=== PATIENT | female | born 1985 | race African-American/Black ===

== ENCOUNTER 2017-05-23 22:38 | Emergency (ER) | payer MEDICAID ==
[~2017-05-23] VITALS: Ht 160 cm; Wt 72.0 kg
[2017-05-24 01:04] VITALS: BP 109/73
== END 2017-05-24 04:40 | disposition left against medical advice (07) ==
LOC: ER 22:38
DX: R42 Dizziness and giddiness (principal); Z53.21 Procedure and treatment not carried out due to patient leaving prior to being seen by health care provider

== ENCOUNTER 2017-11-22 17:18 | Emergency (ER) | payer MEDICAID ==
[~2017-11-22] VITALS: Ht 165.1 cm; Wt 60.0 kg
[2017-11-22 17:20] VITALS: BP 114/69
[2017-11-22] MEDS ORDERED: IBUPROFEN 600MG TABLET PO ONE (19:00)
== END 2017-11-22 19:43 | disposition home or self-care (01) ==
LOC: ER 17:18
DX: M25.572 Pain in left ankle and joints of left foot (principal); W17.2XXA Fall into hole, initial encounter; Y93.89 Activity, other specified; Y92.89 Other specified places as the place of occurrence of the external cause; Y99.8 Other external cause status
CPT/HCPCS: 73610; 73630; 81025; 99284

== ENCOUNTER 2018-09-25 06:30 | Inpatient (IN) | payer MEDICAID ==
[~2018-09-25] VITALS: Ht 167.6 cm; Wt 72.6 kg
[2018-09-25] MEDS ORDERED: OXYCODONE HCL/ACETAMINOPHEN 5/325MG TABLET PO ONE (10:00)
[2018-09-25] MEDS ORDERED: KETOROLAC 60MG/2ML VIAL IM ONE (10:00)
[2018-09-25] MEDS ORDERED: MORPHINE SULFATE 4 MG/ML CPJ (NOT FOR IM USE) IV STA (10:36)
[2018-09-25 11:17] LABS: BASOPHILS % 0.5 % (0.0-2.0); EOSINOPHILS % 1.6 % (0.0-5.0); HEMATOCRIT. 39.8 % (36.0-48.0); HEMOGLOBIN. 13.1 g/dL (12.0-16.0); LYMPHOCYTES % 33.6 % (20.0-50.0); MEAN CORPUSCULAR HEMOGLOBIN 27.2 pg (28.0-32.0); MEAN CORPUSCULAR VOLUME 82.4 fL (81.0-99.0); MEAN PLATELET VOLUME 8.8 fl (7.4-10.4); MONOCYTES % 6.6 % (2.0-8.0); NEUTROPHILS % 57.7 % (40.0-76.0); PLATELET 193 x1000/uL (130-400); RED BLOOD CELL COUNT 4.83 mill/uL (4.2-5.4); RED CELL DISTRIBUTION WIDTH 16.7 % (11.6-14.6)
[2018-09-25 11:24] LABS: CHLORIDE 104 mEq/L (98-107)
[2018-09-25] MEDS ORDERED: IPRATROPIUM/ALBUTEROL 0.5-3(2.5)MG/3ML NEB INH PRN (12:45)
[2018-09-25] MEDS ORDERED: HYDROMORPHONE HCL/PF 2MG/ML CPJ IV PRN (12:45)
[2018-09-25] MEDS ORDERED: ONDANSETRON HCL 4MG/2ML INJ IV PRN (12:45)
[2018-09-25] MEDS ORDERED: HYDROCODONE/ACETAMINOPHEN 5/325MG TABLET PO PRN (12:45)
[2018-09-25 14:43] LABS: PHOSPHORUS 3.6 mg/dL (2.5-4.9)
[2018-09-25 20:00] VITALS: BP 102/69
[2018-09-25 21:20] VITALS: BP 102/69
[2018-09-25 21:30] VITALS: BP 102/69
[2018-09-25 22:05] VITALS: BP 106/56
[2018-09-25] MEDS: ENOXAPARIN 40MG/0.4ML SYR SUBCUT SCH (22:25)
[2018-09-25 22:50] LABS: CREATINE KINASE 59 IU/L (26-192)
[2018-09-25 23:45] VITALS: BP 88/60
[2018-09-26] VITALS (7 sets, daily range): BP systolic 87–115; BP diastolic 54–62
[2018-09-26] MEDS ORDERED: [UNRECOGNIZED DRUG - CODE] PO (03:09)
[2018-09-26] MEDS ORDERED: GABA-529 MT (03:09)
[2018-09-26 07:15] LABS: BASOPHILS % 0.2 % (0.0-2.0); HEMOGLOBIN. 11.1 g/dL (12.0-16.0); LYMPHOCYTES % 40.6 % (20.0-50.0); MEAN CORPUSCULAR HEMOGLOBIN 26.9 pg (28.0-32.0); MEAN CORPUSCULAR VOLUME 81.9 fL (81.0-99.0); MEAN PLATELET VOLUME 9.2 fl (7.4-10.4); MONOCYTES % 9.8 % (2.0-8.0); NEUTROPHILS % 46.4 % (40.0-76.0); PLATELET 163 x1000/uL (130-400); RED BLOOD CELL COUNT 4.15 mill/uL (4.2-5.4); RED CELL DISTRIBUTION WIDTH 16.5 % (11.6-14.6)
[2018-09-26 07:25] LABS: CHLORIDE 104 mEq/L (98-107)
[2018-09-26 07:39] LABS: LDL CHOLESTEROL 145 mg/dL (5-100)
[2018-09-26 07:41] LABS: HDL CHOLESTEROL 47 mg/dL (40-59)
[2018-09-26] MEDS ORDERED: MORPHINE SULFATE 4 MG/ML CPJ (NOT FOR IM USE) IV PRN (11:45)
[2018-09-26] MEDS: ACETAMINOPHEN 325MG TABLET PO PRN (17:27)
[2018-09-26] MEDS: ENOXAPARIN 40MG/0.4ML SYR SUBCUT SCH (21:16)
[2018-09-27] VITALS: BP 101/58
[2018-09-27 04:00] VITALS: BP 99/64
[2018-09-27 06:46] LABS: CHLORIDE 107 mEq/L (98-107)
[2018-09-27 06:56] LABS: BASOPHILS % 0.4 % (0.0-2.0); EOSINOPHILS % 2.8 % (0.0-5.0); HEMATOCRIT. 34.5 % (36.0-48.0); HEMOGLOBIN. 11.4 g/dL (12.0-16.0); LYMPHOCYTES % 35.9 % (20.0-50.0); MEAN CORPUSCULAR VOLUME 81.3 fL (81.0-99.0); MEAN PLATELET VOLUME 9.4 fl (7.4-10.4); MONOCYTES % 9.9 % (2.0-8.0); PLATELET 177 x1000/uL (130-400); RED BLOOD CELL COUNT 4.24 mill/uL (4.2-5.4); RED CELL DISTRIBUTION WIDTH 15.6 % (11.6-14.6)
[2018-09-27 08:00] VITALS: BP 120/68
[2018-09-27 12:14] VITALS: BP 114/80
[2018-09-27] MEDS ORDERED: HYDR-4009 MT (12:28)
[2018-09-27] MEDS ORDERED: ATOR10TA MT (12:28)
[2018-09-27 16:00] VITALS: BP 109/75
[2018-09-27 20:00] VITALS: BP 112/71
[2018-09-27] MEDS: ENOXAPARIN 40MG/0.4ML SYR SUBCUT SCH (20:47)
[2018-09-28] VITALS: BP 119/75
[2018-09-28 04:00] VITALS: BP 121/71
[2018-09-28 07:00] LABS: CHLORIDE 106 mEq/L (98-107)
[2018-09-28 07:16] LABS: BASOPHILS % 0.3 % (0.0-2.0); EOSINOPHILS % 2.8 % (0.0-5.0); HEMATOCRIT. 38.7 % (36.0-48.0); HEMOGLOBIN. 12.6 g/dL (12.0-16.0); LYMPHOCYTES % 25.4 % (20.0-50.0); MEAN CORPUSCULAR HEMOGLOBIN 26.7 pg (28.0-32.0); MEAN CORPUSCULAR VOLUME 82.2 fL (81.0-99.0); MEAN PLATELET VOLUME 9.5 fl (7.4-10.4); MONOCYTES % 9.2 % (2.0-8.0); NEUTROPHILS % 62.3 % (40.0-76.0); PLATELET 173 x1000/uL (130-400); RED BLOOD CELL COUNT 4.71 mill/uL (4.2-5.4); RED CELL DISTRIBUTION WIDTH 16.4 % (11.6-14.6)
[2018-09-28 08:00] VITALS: BP 117/74
[2018-09-28 12:00] VITALS: BP 116/81
[2018-09-28] MEDS: CYCLOBENZAPRINE 10MG TABLET PO SCH ×2 (14:52→22:00)
[2018-09-28] MEDS: GABAPENTIN 100MG CAPSULE PO SCH ×2 (15:00→22:11)
[2018-09-28] MEDS ORDERED: TRAMADOL 50MG TABLET PO PRN (15:00)
[2018-09-28 16:00] VITALS: BP 103/75
[2018-09-28 20:00] VITALS: BP 96/66
[2018-09-28] MEDS: NORTRIPTYLINE HCL 10MG CAPSULE PO SCH (22:12)
[2018-09-28] MEDS: ENOXAPARIN 40MG/0.4ML SYR SUBCUT SCH ×2 (22:13→22:14)
[2018-09-29] VITALS: BP 100/63
[2018-09-29 04:00] VITALS: BP 98/72
[2018-09-29] MEDS: ACETAMINOPHEN 325MG TABLET PO PRN (05:58)
[2018-09-29] MEDS: GABAPENTIN 100MG CAPSULE PO SCH ×3 (05:58→20:55)
[2018-09-29] MEDS: CYCLOBENZAPRINE 10MG TABLET PO SCH ×3 (05:58→20:55)
[2018-09-29 08:00] VITALS: BP 107/72
[2018-09-29 11:51] VITALS: BP 116/81
[2018-09-29 12:11] LABS: BASOPHILS % 0.3 % (0.0-2.0); EOSINOPHILS % 3.8 % (0.0-5.0); HEMATOCRIT. 36.1 % (36.0-48.0); HEMOGLOBIN. 11.8 g/dL (12.0-16.0); LYMPHOCYTES % 23.2 % (20.0-50.0); MEAN CORPUSCULAR VOLUME 82.4 fL (81.0-99.0); MEAN PLATELET VOLUME 9.8 fl (7.4-10.4); NEUTROPHILS % 61.7 % (40.0-76.0); PLATELET 168 x1000/uL (130-400); RED BLOOD CELL COUNT 4.39 mill/uL (4.2-5.4); RED CELL DISTRIBUTION WIDTH 16.6 % (11.6-14.6)
[2018-09-29 12:26] LABS: CHLORIDE 105 mEq/L (98-107)
[2018-09-29 15:51] VITALS: BP 107/71
[2018-09-29] MEDS ORDERED: OXYCODONE HCL/ACETAMINOPHEN 5/325MG TABLET PO PRN (18:00)
[2018-09-29 20:00] VITALS: BP 105/67
[2018-09-29] MEDS: NORTRIPTYLINE HCL 10MG CAPSULE PO SCH (20:55)
[2018-09-30] VITALS: BP 98/65
[2018-09-30 04:00] VITALS: BP 103/67
[2018-09-30] MEDS: CYCLOBENZAPRINE 10MG TABLET PO SCH ×3 (07:00→22:00)
[2018-09-30] MEDS: GABAPENTIN 100MG CAPSULE PO SCH ×3 (07:00→23:46)
[2018-09-30 08:00] VITALS: BP 104/71
[2018-09-30 12:00] VITALS: BP 121/80
[2018-09-30 16:00] VITALS: BP 102/67
[2018-09-30 20:00] VITALS: BP 97/69
[2018-09-30] MEDS: ENOXAPARIN 40MG/0.4ML SYR SUBCUT SCH (23:46)
[2018-09-30] MEDS: NORTRIPTYLINE HCL 10MG CAPSULE PO SCH (23:49)
[2018-10-01] VITALS: BP 96/61
[2018-10-01] MEDS: GABAPENTIN 100MG CAPSULE PO SCH ×3 (06:05→21:33)
[2018-10-01] MEDS: CYCLOBENZAPRINE 10MG TABLET PO SCH ×3 (06:05→21:33)
[2018-10-01 08:00] VITALS: BP 106/69
[2018-10-01 12:00] VITALS: BP 112/67
[2018-10-01 16:00] VITALS: BP 115/75
[2018-10-01 20:00] VITALS: BP 105/66
[2018-10-01] MEDS: NORTRIPTYLINE HCL 10MG CAPSULE PO SCH (21:33)
[2018-10-01] MEDS: ENOXAPARIN 40MG/0.4ML SYR SUBCUT SCH (21:34)
[2018-10-02] VITALS: BP 105/54
[2018-10-02 04:00] VITALS: BP 107/57
[2018-10-02] MEDS: CYCLOBENZAPRINE 10MG TABLET PO SCH ×3 (06:15→21:20)
[2018-10-02] MEDS: GABAPENTIN 100MG CAPSULE PO SCH ×3 (06:15→21:20)
[2018-10-02 08:00] VITALS: BP 108/63
[2018-10-02 11:58] VITALS: BP 103/55
[2018-10-02 16:11] VITALS: BP 109/63
[2018-10-02] MEDS ORDERED: BISACODYL 10MG SUPP PR SCH (18:00)
[2018-10-02] MEDS: LACTULOSE 20G/30ML UDC PO SCH ×2 (18:25→21:32)
[2018-10-02 20:00] VITALS: BP 106/72
[2018-10-02] MEDS ORDERED: POLYETHYLENE GLYCOL 3350 (17GM) 1 DOSE PACK PO SCH (21:00)
[2018-10-02] MEDS: NORTRIPTYLINE HCL 10MG CAPSULE PO SCH (21:20)
[2018-10-02] MEDS: ATORVASTATIN CALCIUM 10MG TABLET PO SCH (21:20)
[2018-10-02] MEDS: ENOXAPARIN 40MG/0.4ML SYR SUBCUT SCH (21:21)
[2018-10-03] VITALS: BP 103/62
[2018-10-03] MEDS: LACTULOSE 20G/30ML UDC PO SCH (02:49)
[2018-10-03 04:00] VITALS: BP 103/61
[2018-10-03] MEDS: GABAPENTIN 100MG CAPSULE PO SCH ×3 (05:47→21:51)
[2018-10-03] MEDS: CYCLOBENZAPRINE 10MG TABLET PO SCH ×3 (05:47→21:51)
[2018-10-03 08:00] VITALS: BP 103/64
[2018-10-03] MEDS: DOCUSATE SODIUM 100MG CAPSULE PO SCH ×2 (08:37→17:00)
[2018-10-03 12:00] VITALS: BP 105/60
[2018-10-03 16:00] VITALS: BP 103/60
[2018-10-03 17:06] VITALS: BP 103/60
[2018-10-03] MEDS: ATORVASTATIN CALCIUM 10MG TABLET PO SCH (21:50)
[2018-10-03] MEDS: NORTRIPTYLINE HCL 10MG CAPSULE PO SCH (21:51)
[2018-10-03] MEDS: ENOXAPARIN 40MG/0.4ML SYR SUBCUT SCH (21:52)
== END 2018-10-03 22:35 | disposition home health service (06) | DRG 347 ==
LOC: ER 06:30 → EDBEDREQ 11:38 → EDBEDREQTM 11:38 → EDBEDREQSVC 11:38 → EDBEDREQ 14:18 → ENRESERV 16:33 → 6EST 21:17
PROVIDERS: ADMIT Internal Medicine; ATTEND Internal Medicine
DX: M48.02 Spinal stenosis, cervical region (principal); E78.00 Pure hypercholesterolemia, unspecified; E78.5 Hyperlipidemia, unspecified; M79.18 Myalgia, other site; R26.9 Unspecified abnormalities of gait and mobility; M47.22 Other spondylosis with radiculopathy, cervical region; G89.29 Other chronic pain; R29.810 Facial weakness; Z83.3 Family history of diabetes mellitus; Z79.899 Other long term (current) drug therapy
CPT/HCPCS: 36415; 70551; 71045; 72040; 72070; 72100; 72141; 72146; 72148; 80048; 80061; 82550; 83036; 83735; 84100; 84443; 84484; 93005; 93970; 96365; 96375; 97110; 97116; 97163; 97166; 97530; 99285; J1170; J1650; J1885; J2270

== ENCOUNTER 2019-05-26 19:12 | Emergency (ER) | payer MEDICAID ==
[~2019-05-26] VITALS: Ht 160 cm; Wt 82.0 kg
[~2019-05-26 19:12] MED LIST: ATOR10TA MT; GABA-529 MT; HYDR-4009 MT; [UNRECOGNIZED DRUG - CODE] PO
[2019-05-26] MEDS ORDERED: KETOROLAC 60MG/2ML VIAL IM ONE (21:30)
[2019-05-27 00:43] VITALS: BP 127/75
== END 2019-05-27 00:40 | disposition home or self-care (01) ==
LOC: ER 19:12
DX: M54.12 Radiculopathy, cervical region (principal); M54.16 Radiculopathy, lumbar region
CPT/HCPCS: 72125; 72131; 81025; 96372; 99284; J1885